=== PATIENT | male | born 1960 | race Caucasian/White ===

== ENCOUNTER 2021-10-31 09:43 | Observation (INO) ==
[2021-10-31 17:22] VITALS: BMI 18.4
--- NOTE | 2021-10-31 18:28 | RAD ---
HISTORYCENTRAL LINE PLACEMENTSTUDYCHEST x-ray, 1 VIEWCOMPARISONNoneFINDINGSCentral venous catheter terminates in the region of the right atrium of the heart. Heart is normal in size. No pneumothorax, focal infiltrate, or pleural effusion is seen. Minimal linear atelectasis is seen at the left lung base. Old unhealed left clavicle fracture.IMPRESSIONCentral venous catheter terminates in the region of the right atrium of the heart.Electronically signed by: Judd Mckeon (Oct 31, 2021 18:26:12)
[2021-10-31] MEDS ORDERED: FLUZONE II4 or AFLURIA II4 IM ONE (18:30)
[2021-10-31] MEDS: LASIX PO SCH (18:38)
[2021-10-31] MEDS: CHRONULAC PO SCH (18:38)
[2021-10-31 19:08] LABS: HEMATOCRIT 17.3 % (42.0-54.0); HEMOGLOBIN 6.1 g/dL (13.5-18.0)
[2021-10-31] MEDS ORDERED: MICRO K EXTEN CAP 10 MEQ PO PRN (21:00)
[2021-10-31] MEDS ORDERED: PEPCID TAB 40 MG PO SCH (21:00)
[2021-10-31] MEDS ORDERED: TUMS PO SCH (21:00)
[2021-10-31] MEDS ORDERED: POTASSIUM CHL 60 MEQ/NS 0.45% 500 ML IV PRN (21:00)
[2021-10-31] MEDS ORDERED: ZANAFLEX PO SCH (21:00)
[2021-10-31] MEDS ORDERED: K-RIDER 10 MEQ/NS 100 ML 10 MEQ/100 ML BAG IV PRN (21:00)
[2021-10-31] MEDS ORDERED: KLOR-CON PO PRN (21:00)
[2021-10-31] MEDS ORDERED: K-DUR TAB 20 MEQ PO PRN (21:00)
[2021-10-31] MEDS ORDERED: POTASSIUM CHL 40 MEQ/NS 0.45% 500 ML IV PRN (21:00)
[2021-10-31] MEDS ORDERED: POTASSIUM CHLORIDE LIQ 20 MEQ UDC PO PRN (21:00)
[2021-10-31] MEDS: PROTONIX TAB 40 MG PO SCH (21:47)
[2021-10-31] MEDS: K-DUR TAB 20 MEQ PO SCH (21:47)
[2021-10-31] MEDS ORDERED: NS 500 ML IV 500 ML IV ONE (22:09)
[2021-11-01] MEDS ORDERED: MAG-OX TAB PO SCH (07:00)
[2021-11-01 07:42] VITALS: BP 92/51
[2021-11-01 07:53] LABS: BASOPHILS # (AUTO) 0.1 X10^3/uL (0.0-0.1); BASOPHILS % (AUTO) 2.9 % (0.2-1.0); EOSINOPHILS # (AUTO) 0.1 x10^3/uL (0.0-0.2); EOSINOPHILS % (AUTO) 2.6 % (0.9-2.9); HEMATOCRIT 21.7 % (42.0-54.0); HEMOGLOBIN 7.6 g/dL (13.5-18.0); LYMPHOCYTES % (AUTO) 23.3 % (21.0-51.0); MEAN CORPUSCULAR HEMOGLOBIN 33.7 pg (27.0-34.0); MEAN CORPUSCULAR HGB CONC 35.1 g/dL (33.0-35.0); MEAN CORPUSCULAR VOLUME 95.8 fL (80.0-100.0); MEAN PLATELET VOLUME 7.8 fL (7.4-11.0); MONOCYTES # (AUTO) 0.5 x10^3/uL (0.3-0.8); MONOCYTES % (AUTO) 11.6 % (0.0-13.0); NEUTROPHILS # (AUTO) 2.6 x10^3/uL (2.2-4.8); NEUTROPHILS % (AUTO) 59.6 % (42.0-75.0); RED BLOOD COUNT 2.26 X10^6/uL (4.7-6.0); RED CELL DISTRIBUTION WIDTH 20.6 % (11.6-16.5); WHITE BLOOD COUNT 4.4 X10^3/uL (3.6-10.0)
[2021-11-01 08:08] LABS: ALANINE AMINOTRANSFERASE 11 Units/L (12-78); ALBUMIN 1.7 g/dL (3.4-5.0); ALKALINE PHOSPHATASE 122 Units/L (46-116); ASPARTATE AMINO TRANSFERASE 30 Units/L (15-37); BLOOD UREA NITROGEN 12 mg/dL (7-18); CALCIUM 6.9 mg/dL (8.5-10.1); CARBON DIOXIDE 30.8 mmol/L (21-32); CHLORIDE 97 mmol/L (98-107); COR CA(FOR HYPOALB) 8.7 mg/dL (8.5-10.1); CREATININE 0.89 mg/dL (0.70-1.30); SODIUM 133 mmol/L (136-145); TOTAL PROTEIN 5.3 g/dL (6.4-8.2); eGFR NON BLACK RACES > 60 (>60)
[2021-11-01 08:11] LABS: ANISOCYTOSIS 1+; PLATELET MORPHOLOGY COMMENT NORMAL (NORMAL)
[2021-11-01] MEDS: K-DUR TAB 20 MEQ PO SCH (08:30)
[2021-11-01] MEDS: LASIX PO SCH (08:30)
[2021-11-01] MEDS: PROTONIX TAB 40 MG PO SCH (08:30)
[2021-11-01] MEDS ORDERED: K-RIDER 10 MEQ/NS 100 ML 10 MEQ/100 ML BAG IV PRN (08:58)
[2021-11-01] MEDS ORDERED: POTASSIUM CHL 60 MEQ/NS 0.45% 500 ML IV PRN (08:58)
[2021-11-01] MEDS ORDERED: K-DUR TAB 20 MEQ PO PRN (08:58)
[2021-11-01] MEDS ORDERED: MICRO K EXTEN CAP 10 MEQ PO PRN (08:58)
[2021-11-01] MEDS ORDERED: POTASSIUM CHLORIDE LIQ 20 MEQ UDC PO PRN (08:58)
[2021-11-01] MEDS ORDERED: KLOR-CON PO PRN (08:58)
[2021-11-01] MEDS ORDERED: POTASSIUM CHL 40 MEQ/NS 0.45% 500 ML IV PRN (08:58)
[2021-11-01] MEDS ORDERED: ALDACTONE TAB 25 MG PO SCH (09:00)
[2021-11-01] MEDS: CHRONULAC PO SCH (10:40)
== END 2021-11-01 10:06 | disposition left against medical advice (07) ==
LOC: MED/SURG
PROVIDERS: ADMIT Obstetrics & Gynecology Obstetrics; ATTEND Obstetrics & Gynecology Obstetrics
DX: I87.2 Venous insufficiency (chronic) (peripheral); Z20.822 Contact with and (suspected) exposure to COVID-19; Z53.29 Procedure and treatment not carried out because of patient's decision for other reasons; D63.8 Anemia in other chronic diseases classified elsewhere; K76.9 Liver disease, unspecified

== ENCOUNTER 2021-11-12 11:38 | Inpatient (IN) ==
[2021-11-12] MEDS ORDERED: ALBUMIN HUMAN 25%- 100 ML 100 ML IV ONE ×2 (12:00→15:00)
[2021-11-12] MEDS ORDERED: NS 250 ML IV 250 ML IV ONE (13:47)
[2021-11-12] MEDS: ALDACTONE TAB 25 MG PO SCH (14:05)
[2021-11-12] MEDS: PROTONIX INJ 40 MG VIAL 80 MG in NS 100 ML IV 80 ML IV SCH ×2 (14:06→22:13)
[2021-11-12 16:03] VITALS: BMI 18.4
[2021-11-12] MEDS: LASIX PO SCH (16:40)
[2021-11-12] MEDS ORDERED: BUTT CREAM (COMPOUND) ONE (17:51)
[2021-11-12] MEDS: BUTT CREAM (COMPOUND) TOP PRN (18:15)
[2021-11-12 18:25] LABS: HEMATOCRIT 21.3 % (42.0-54.0); HEMOGLOBIN 7.5 g/dL (13.5-18.0)
[2021-11-12] MEDS ORDERED: K-DUR TAB 20 MEQ PO ONE (19:26)
[2021-11-12] MEDS: K-DUR TAB 20 MEQ PO SCH (20:28)
[2021-11-13] MEDS: TYLENOL 500 MG TAB EXTRA STRENGTH PO PRN ×2 (00:10→21:54)
[2021-11-13 05:24] LABS: BASOPHILS # (AUTO) 0.1 X10^3/uL (0.0-0.1); EOSINOPHILS % (AUTO) 0.6 % (0.9-2.9); LYMPHOCYTES # (AUTO) 1.1 X10^3/uL (1.3-2.9); MEAN CORPUSCULAR VOLUME 90.1 fL (80.0-100.0); MONOCYTES # (AUTO) 0.5 x10^3/uL (0.3-0.8); NEUTROPHILS # (AUTO) 6.1 x10^3/uL (2.2-4.8)
[2021-11-13 05:27] LABS: BASOPHILS % (AUTO) 0.9 % (0.2-1.0); LYMPHOCYTES % (AUTO) 14.3 % (21.0-51.0); MEAN CORPUSCULAR HEMOGLOBIN 31.7 pg (27.0-34.0); MEAN CORPUSCULAR HGB CONC 35.2 g/dL (33.0-35.0); MEAN PLATELET VOLUME 7.8 fL (7.4-11.0); MONOCYTES % (AUTO) 6.2 % (0.0-13.0); RED BLOOD COUNT 2.17 X10^6/uL (4.7-6.0); RED CELL DISTRIBUTION WIDTH 20.2 % (11.6-16.5); WHITE BLOOD COUNT 7.9 X10^3/uL (3.6-10.0)
[2021-11-13 05:34] LABS: HEMATOCRIT 19.5 % (42.0-54.0); HEMOGLOBIN 6.9 g/dL (13.5-18.0)
[2021-11-13 05:43] LABS: ALANINE AMINOTRANSFERASE 9 Units/L (12-78); ALBUMIN 2.4 g/dL (3.4-5.0); ALKALINE PHOSPHATASE 78 Units/L (46-116); ASPARTATE AMINO TRANSFERASE 26 Units/L (15-37); BLOOD UREA NITROGEN 35 mg/dL (7-18); CALCIUM 7.6 mg/dL (8.5-10.1); CHLORIDE 104 mmol/L (98-107); COR CA(FOR HYPOALB) 8.9 mg/dL (8.5-10.1); COR NA(FOR HYPERGLY) 138 mmol/L (136-145); CREATININE 1.23 mg/dL (0.70-1.30); MAGNESIUM 1.6 mg/dL (1.7-2.9); SODIUM 138 mmol/L (136-145); eGFR NON BLACK RACES > 60 (>60)
[2021-11-13] MEDS ORDERED: MAG-OX TAB PO SCH (07:00)
[2021-11-13] MEDS: ALDACTONE TAB 25 MG PO SCH (08:33)
[2021-11-13] MEDS: K-DUR TAB 20 MEQ PO SCH ×2 (08:34→11:27)
[2021-11-13] MEDS: LASIX PO SCH ×2 (08:36→17:53)
[2021-11-13] MEDS ORDERED: POTASSIUM CHL 60 MEQ/NS 0.45% 500 ML IV PRN (10:09)
[2021-11-13] MEDS ORDERED: KLOR-CON PO PRN (10:09)
[2021-11-13] MEDS ORDERED: POTASSIUM CHL 40 MEQ/NS 0.45% 500 ML IV PRN (10:09)
[2021-11-13] MEDS ORDERED: POTASSIUM CHLORIDE LIQ 20 MEQ UDC PO PRN (10:09)
[2021-11-13] MEDS ORDERED: K-RIDER 10 MEQ/NS 100 ML 10 MEQ/100 ML BAG IV PRN (10:09)
[2021-11-13] MEDS ORDERED: MICRO K EXTEN CAP 10 MEQ PO PRN (10:09)
[2021-11-13] MEDS ORDERED: MAGNESIUM SULFATE 1 GRAM/100 mL PREMIX 1 G/100 ML BAG IV PRN (10:09)
[2021-11-13] MEDS ORDERED: NS 500 ML IV 500 ML IV ONE (10:47)
[2021-11-13] MEDS: CHRONULAC PO SCH ×3 (11:27→22:01)
[2021-11-13] MEDS: PROTONIX INJ 40 MG VIAL 80 MG in NS 100 ML IV 80 ML IV SCH ×2 (11:45→20:35)
[2021-11-13] MEDS: K-DUR TAB 20 MEQ PO PRN ×3 (11:46→21:05)
[2021-11-13] MEDS ORDERED: NORCO 5/325 MG TAB PO PRN (12:31)
--- NOTE | 2021-11-13 14:40 | DR.H&P ---
H&P History & Physical for Day of: H&P Date: 11/13/21 Chief Complaint Chief Complaint: Bloody stool Allergies Allergies Allergy/AdvReac Type Severity Reaction Status Date / Time baclofen [From Lioresal] Allergy Verified 10/31/21 18:33 ciprofloxacin [From Cipro] Allergy Verified 10/31/21 17:27 History of Present Illness History of Present Illness: This is a 61-year-old white male who was direct admitted by Deb Soni who is a nurse practitioner of Dr. Rajesh Soni. He was originally supposed to come in and received blood for anemia. But in the emergency department it was noted that he was passing black tarry stools while he was going to get blood so he was subsequently admitted. It looks looks as if he is having active GI bleed so I went ahead and admitted him and started him on IV Protonix drip. We will keep eye on his hemoglobin and transfuse as n ecessary. 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 He reports his last drink was approximately 2 weeks ago. Past Medical History Past Medical History: Hypertension Additional Medical History: Alcohol use disorder Past Surgical History Surgical History: Other Family History Family Medical History: Hypertension Social History Does patient currently use any type of tobacco product: No Have you used tobacco products in the last 12 months: Yes Does any household member use tobacco: No Alcohol Use: Occasionally Drug Use: None Medications Home Medications: baclofen [From Lioresal] Allergy (Verified 10/31/21 18:33) ciprofloxacin [From Cipro] Allergy (Verified 10/31/21 17:27) CONTINUE taking the following medications baclofen 10 mg PO HS 11/13/21 [History] calcium carbonate [Tums E-X] 2 tab PO HS 11/13/21 [History] cholecalciferol (vitamin D3) 5,000 unit PO DAILY 11/13/21 [History] folic acid 1 mg PO DAILY 11/13/21 [History] furosemide 40 mg PO DAILY 11/13/21 [History] lactulose 15 ml PO DAILY 11/13/21 [History] magnesium oxide 400 mg PO DAILY 11/13/21 [History] spironolactone 100 mg PO DAILY 11/13/21 [History] Labs Result Diagrams: 11/13/21 04:35 11/13/21 13:44 Labs: Laboratory WBC 7.9 X10^3/uL (3.6-10.0) 11/13/21 04:35 RBC 2.17 X10^6/uL (4.7-6.0) L 11/13/21 04:35 Hgb 6.9 g/dL (13.5-18.0) L* 11/13/21 04:35 Hct 19.5 % (42.0-54.0) L* 11/13/21 04:35 MCV 90.1 fL (80.0-100.0) 11/13/21 04:35 MCH 31.7 pg (27.0-34.0) 11/13/21 04:35 MCHC 35.2 g/dL (33.0-35.0) H 11/13/21 04:35 RDW 20.2 % (11.6-16.5) H 11/13/21 04:35 Plt Count 56 X10^3/uL (150.0-450.0) L 11/13/21 04:35 MPV 7.8 fL (7.4-11.0) 11/13/21 04:35 Neut % (Auto) 78.0 % (42.0-75.0) H 11/13/21 04:35 Lymph % (Auto) 14.3 % (21.0-51.0) L 11/13/21 04:35 [place] % (Auto) 6.2 % (0.0-13.0) 11/13/21 04:35 Eos % (Auto) 0.6 % (0.9-2.9) L 11/13/21 04:35 Baso % (Auto) 0.9 % (0.2-1.0) 11/13/21 04:35 Neut # (Auto) 6.1 x10^3/uL (2.2-4.8) H 11/13/21 04:35 Lymph # (Auto) 1.1 X10^3/uL (1.3-2.9) L 11/13/21 04:35 [place] # (Auto) 0.5 x10^3/uL (0.3-0.8) 11/13/21 04:35 Eos # (Auto) 0.0 x10^3/uL (0.0-0.2) 11/13/21 04:35 Baso # (Auto) 0.1 X10^3/uL (0.0-0.1) 11/13/21 04:35 Absolute Nucleated RBC 0.1 /100WBC 11/13/21 04:35 Sodium 138 mmol/L (136-145) 11/13/21 04:35 Corrected Sodium 138 mmol/L (136-145) 11/13/21 04:35 Potassium 3.3 mmol/L (3.5-5.1) L 11/13/21 13:44 Chloride 104 mmol/L (98-107) 11/13/21 04:35 Carbon Dioxide 24.0 mmol/L (21-32) 11/13/21 04:35 BUN 35 mg/dL (7-18) H 11/13/21 04:35 Creatinine 1.23 mg/dL (0.70-1.30) 11/13/21 04:35 Est GFR (MDRD) Af Amer > 60 (>60) 11/13/21 04:35 Est GFR (MDRD) Non-Af > 60 (>60) 11/13/21 04:35 Glucose 115 mg/dL (65-99) H 11/13/21 04:35 Calcium 7.6 mg/dL (8.5-10.1) L 11/13/21 04:35 Corrected Calcium 8.9 mg/dL (8.5-10.1) 11/13/21 04:35 Magnesium 1.6 mg/dL (1.7-2.9) L 11/13/21 04:35 Total Bilirubin 9.30 mg/dL (0.2-1.0) H 11/13/21 04:35 AST 26 Units/L (15-37) 11/13/21 04:35 ALT 9 Units/L (12-78) L 11/13/21 04:35 Alkaline Phosphatase 78 Units/L (46-116) 11/13/21 04:35 Ammonia 122 umol/L (11-32) H 11/13/21 08:56 Total Protein 5.0 g/dL (6.4-8.2) L 11/13/21 04:35 Albumin 2.4 g/dL (3.4-5.0) L 11/13/21 04:35 Globulin 2.6 g/dL (2.5-4.5) 11/13/21 04:35 Albumin/Globulin Ratio 0.9 Ratio (1.1-2.1) L 11/13/21 04:35 Stool Description 25 grams liquid 11/13/21 10:15 Stl Occult Blood (IFOB) Positive (NEGATIVE) A 11/13/21 10:15 SARS CoV-2 RNA Rapid NASIMA Negative (NEGATIVE) 11/12/21 14:22 Blood Type A POSITIVE 11/11/21 09:55 Antibody Screen Negative 11/11/21 09:55 Crossmatch See Detail 11/11/21 09:55 Review of Systems Constitutional: Weakness Eyes: No Symptoms Reported ENT: No Symptoms Reported Respiratory: No Symptoms Reported Cardiovascular: No Symptoms Reported Gastrointestinal: Melena Genitourinary: No Symptoms Reported Musculoskeletal: No Symptoms Reported Skin: No Symptoms Reported Neurological: No Symptoms Reported Physical Exam Vital Signs: Temperature 98.5 F Pulse Rate [Left Brachial] 103 Respiratory Rate 20 Blood Pressure [Left Arm] 120/63 Blood Pressure [Right Arm] 92/51 O2 Sat by Pulse Oximetry 98 Oriented: Normal, Time, Person and Place Eyes: Normal Ear: Normal Nose: Normal Throat: Normal Respiratory: Clear Throughout Cardiovascular: Normal : Normal Auscultation: Bowel Sounds: Normal Tenderness: Normal Musculoskeletal: Normal Psychiatric: Normal Mood Description: Calm Affect: Normal Speech Pattern: Clear and Appropriate Assessment/Plan (1) GI bleed: Status: Acute Plan: Protonix drip (2) Hypertension: Status: Acute Plan: Monitor blood pressure for now. (3) Alcohol use disorder: Status: Acute Review H&P Reviewed: Yes Patient was examined?: Yes
--- NOTE | 2021-11-13 14:49 | PCM.PROG ---
Progress Note Progress Note for Day of Date of Exam: 11/13/21 Subjective Subjective: The patient reports she is feeling better this morning. The patient's hemoglobin is 6.9 this morning. He has continued to drop despite receiving blood since yesterday. I am going to consult Dr. Raman our general for him to do EGD on him later today or tomorrow. We will continue to transfuse him as needed. Continued every 6 hours H&H's and follow up with Dr. Raman's consult. The patient's platelet count is 56 today. Past Medical Family Social History Allergies: Allergies baclofen [From Lioresal] Allergy (Verified 10/31/21 18:33) ciprofloxacin [From Cipro] Allergy (Verified 10/31/21 17:27) Review of Systems ROS: No change since H&P Vital Signs and I&O's Vital Signs: Temperature 98.5 F Pulse Rate [Left Brachial] 103 Respiratory Rate 20 Blood Pressure [Left Arm] 120/63 Blood Pressure [Right Arm] 92/51 O2 Sat by Pulse Oximetry 98 Intake and Output: Intake & Output 11/11/21 11/12/21 11/13/21 11/14/21 11:59 11:59 11:59 11:59 Intake Total 1304 / 1304 Balance 1304 / 1304 Physical Exam Oriented: Normal, Time, Person and Place Eyes: Normal Ear: Normal Nose: Normal Throat: Normal Cardiovascular: Normal : Normal Auscultation: Bowel Sounds: Normal Tenderness: Normal Musculoskeletal: Normal Psychiatric: Normal Mood Description: Calm Affect: Normal Speech Pattern: Clear and Appropriate Laboratory and Diagnostics Result Diagrams: 11/13/21 04:35 11/13/21 13:44 Labs: Laboratory WBC 7.9 X10^3/uL (3.6-10.0) 11/13/21 04:35 RBC 2.17 X10^6/uL (4.7-6.0) L 11/13/21 04:35 Hgb 6.9 g/dL (13.5-18.0) L* 11/13/21 04:35 Hct 19.5 % (42.0-54.0) L* 11/13/21 04:35 MCV 90.1 fL (80.0-100.0) 11/13/21 04:35 MCH 31.7 pg (27.0-34.0) 11/13/21 04:35 MCHC 35.2 g/dL (33.0-35.0) H 11/13/21 04:35 RDW 20.2 % (11.6-16.5) H 11/13/21 04:35 Plt Count 56 X10^3/uL (150.0-450.0) L 11/13/21 04:35 MPV 7.8 fL (7.4-11.0) 11/13/21 04:35 Neut % (Auto) 78.0 % (42.0-75.0) H 11/13/21 04:35 Lymph % (Auto) 14.3 % (21.0-51.0) L 11/13/21 04:35 [place] % (Auto) 6.2 % (0.0-13.0) 11/13/21 04:35 Eos % (Auto) 0.6 % (0.9-2.9) L 11/13/21 04:35 Baso % (Auto) 0.9 % (0.2-1.0) 11/13/21 04:35 Neut # (Auto) 6.1 x10^3/uL (2.2-4.8) H 11/13/21 04:35 Lymph # (Auto) 1.1 X10^3/uL (1.3-2.9) L 11/13/21 04:35 [place] # (Auto) 0.5 x10^3/uL (0.3-0.8) 11/13/21 04:35 Eos # (Auto) 0.0 x10^3/uL (0.0-0.2) 11/13/21 04:35 Baso # (Auto) 0.1 X10^3/uL (0.0-0.1) 11/13/21 04:35 Absolute Nucleated RBC 0.1 /100WBC 11/13/21 04:35 Sodium 138 mmol/L (136-145) 11/13/21 04:35 Corrected Sodium 138 mmol/L (136-145) 11/13/21 04:35 Potassium 3.3 mmol/L (3.5-5.1) L 11/13/21 13:44 Chloride 104 mmol/L (98-107) 11/13/21 04:35 Carbon Dioxide 24.0 mmol/L (21-32) 11/13/21 04:35 BUN 35 mg/dL (7-18) H 11/13/21 04:35 Creatinine 1.23 mg/dL (0.70-1.30) 11/13/21 04:35 Est GFR (MDRD) Af Amer > 60 (>60) 11/13/21 04:35 Est GFR (MDRD) Non-Af > 60 (>60) 11/13/21 04:35 Glucose 115 mg/dL (65-99) H 11/13/21 04:35 Calcium 7.6 mg/dL (8.5-10.1) L 11/13/21 04:35 Corrected Calcium 8.9 mg/dL (8.5-10.1) 11/13/21 04:35 Magnesium 1.6 mg/dL (1.7-2.9) L 11/13/21 04:35 Total Bilirubin 9.30 mg/dL (0.2-1.0) H 11/13/21 04:35 AST 26 Units/L (15-37) 11/13/21 04:35 ALT 9 Units/L (12-78) L 11/13/21 04:35 Alkaline Phosphatase 78 Units/L (46-116) 11/13/21 04:35 Ammonia 122 umol/L (11-32) H 11/13/21 08:56 Total Protein 5.0 g/dL (6.4-8.2) L 11/13/21 04:35 Albumin 2.4 g/dL (3.4-5.0) L 11/13/21 04:35 Globulin 2.6 g/dL (2.5-4.5) 11/13/21 04:35 Albumin/Globulin Ratio 0.9 Ratio (1.1-2.1) L 11/13/21 04:35 Stool Description 25 grams liquid 11/13/21 10:15 Stl Occult Blood (IFOB) Positive (NEGATIVE) A 11/13/21 10:15 SARS CoV-2 RNA Rapid NASIMA Negative (NEGATIVE) 11/12/21 14:22 Blood Type A POSITIVE 11/11/21 09:55 Antibody Screen Negative 11/11/21 09:55 Crossmatch See Detail 11/11/21 09:55 Plan (1) GI bleed: Status: Acute Plan: Protonix drip (2) Hypertension: Status: Acute Plan: Monitor blood pressure for now. (3) Alcohol use disorder: Status: Acute (4) Thrombocytopenia: Status: Acute
[2021-11-13] MEDS ORDERED: RESTORIL CAP 15 MG PO PRN (18:01)
[2021-11-13] MEDS ORDERED: NS 250 ML IV 250 ML IV ONE (18:34)
[2021-11-13 18:40] LABS: HEMOGLOBIN 8.4 g/dL (13.5-18.0)
[2021-11-13] MEDS: BUTT CREAM (COMPOUND) TOP PRN (21:54)
[2021-11-13] MEDS ORDERED: ZOFRAN INJ 4 MG VIAL IVP PRN (23:58)
[2021-11-14] MEDS ORDERED: ZOFRAN INJ 4 MG VIAL ONE
[2021-11-14] MEDS ORDERED: NS 1,000 ML IV 1,000 ML ONE ×3 (00:10→02:18)
[2021-11-14] MEDS ORDERED: D5 1/2 NS 1,000 ML 1,000 ML IV SCH (00:25)
[2021-11-14 00:48] LABS: HEMOGLOBIN 3.9 g/dL (13.5-18.0)
[2021-11-14 00:49] LABS: HEMATOCRIT 10.8 % (42.0-54.0)
[2021-11-14] MEDS ORDERED: NS 500 ML IV 500 ML IV ONE (00:51)
[2021-11-14] MEDS ORDERED: SANDOSTATIN IV SCH ×2 (01:05)
[2021-11-14] MEDS ORDERED: NS IV SCH ×4 (01:05→04:15)
[2021-11-14] MEDS ORDERED: NS 250 ML IV 250 ML IV ONE ×2 (01:10→05:09)
[2021-11-14] MEDS: NS 1,000 ML IV 500 ML IV ONE ×3 (01:12→03:39)
[2021-11-14 01:22] LABS: BILIRUBIN,URINE NEGATIVE (NEGATIVE); BLOOD/HEMOGLOBIN,URINE 3+ (NEGATIVE); GLUCOSE, URINE NEGATIVE (NEGATIVE); KETONES,URINE NEGATIVE (NEGATIVE); LEUKOCYTE ESTERASE ,URINE 2+ (NEGATIVE); NITRITES,URINE POSITIVE (NEGATIVE); PROTEIN,URINE 1+ (NEGATIVE); UROBILINOGEN,URINE NORMAL (NORMAL)
[2021-11-14 01:28] LABS: APPEARANCE,URINE CLEAR (CLEAR); COLOR,URINE AMBER (YELLOW)
[2021-11-14 01:29] LABS: BACTERIA,URINE TRACE /HPF (NEGATIVE); SQUAMOUS EPITHELIAL CELL,UR MANY /HPF (NEGATIVE)
[2021-11-14] MEDS ORDERED: DOPAMINE IV PREMIX 400 MG/250 ML 400 MG/250 ML BAG IV ONE (03:20)
[2021-11-14] MEDS ORDERED: DOPAMINE IV PREMIX 400 MG/250 ML 400 MG/250 ML BAG IV PRN (03:25)
[2021-11-14] MEDS ORDERED: LASIX ONE (03:45)
[2021-11-14] MEDS ORDERED: LEVOPHED INJ (VIAL) 8 MG in D5W 250 ML IV 242 ML IV PRN (04:00)
[2021-11-14] MEDS ORDERED: LEVOPHED 8 MG/250 ML IV *PREMIX 8 MG/250 ML PLAST..BAG IV ONE (04:13)
[2021-11-14] MEDS ORDERED: LEVOPHED IV SCH ×2 (04:15)
[2021-11-14] MEDS ORDERED: ADRENALINE CHL INJ ONE (05:08)
[2021-11-14 07:32] VITALS: BP 218/79
[2021-11-14] MEDS ORDERED: NS IV ONE ×2 (07:58)
[2021-11-14] MEDS ORDERED: ADRENALINE CHL IV ONE ×2 (07:58)
== END 2021-11-14 11:01 | disposition expired | DRG 379 ==
LOC: MED/SURG → ICU 11-14 00:20
PROVIDERS: ADMIT Family Medicine; ATTEND Obstetrics & Gynecology Obstetrics